=== PATIENT | female | born 1955 | race American Indian/Alaskan Native ===

== ENCOUNTER 2019-04-26 10:33 | Outpatient (CLI) | payer OTHER ==
--- NOTE | 2019-04-27 09:23 | Mammography Report ---
DIGITAL SCREENING MAMMOGRAM WITH CAD, 04/26/2019 INDICATION: Routine screening mammography. TECHNIQUE: Digital bilateral 2D mammography was obtained in the craniocaudal and mediolateral obliq ue projections. This examination was interpreted with the benefit of Computer-Aided Detection analysi s. COMPARISON: None available. However, she indicated that she had a prior mammogram at [facility]. FINDINGS: Breast Density: The breasts are heterogeneously dense, which may obscure small masses. Right outer parenchymal asymmetries require comparison with the prior mammogram or additional imaging . There is no evidence of dominant mass, suspicious calcifications or architectural distortion in the left breast. Scattered bilateral calcifications with benign morphology. IMPRESSION: Comparison with a previous mammogram is recommended. We will attempt to obtain a prior ma mmogram for comparison. If we do not obtain a prior mammogram within 30 days, a revised report will b e issued recommending a recall for additional imaging. Please be advised that the patient should not schedule an appointment for return until adequate time (at least 2 weeks) has passed for us to obtain the prior mammogram. Follow up recommendation: Obtain prior study for comparison Category 0: Incomplete. Needs additional imaging evaluation and/or prior mammograms for comparison. A "normal" or negative report should not discourage follow up or biopsy of a clinically significant f inding. A written summary of these findings will be mailed to the patient. The patient will be entered into a mammography reporting system which will generate a reminder letter for the patient's next appointmen t at the appropriate interval. The [employer] recommends yearly mammograms starting at age 40 and continuing as l erin as a woman is in good health. Breast MRI is recommended for women with an approximate 20-25% or greater lifetime risk of breast cancer, including women with a strong family history of breast or ova alberto cancer or who have been treated for Hodgkin's disease. Signer Name: Carloz Mock MD Signed: 04/27/2019 9:19 AM Workstation Name: [id number]
== END 2019-04-26 10:34 | disposition home or self-care (01) ==
LOC: MAMMO 10:33
PROVIDERS: ATTEND Internal Medicine
DX: Z12.31 Encounter for screening mammogram for malignant neoplasm of breast (principal)
CPT/HCPCS: 77067

== ENCOUNTER 2020-08-21 09:02 | Outpatient (CLI) | payer OTHER ==
--- NOTE | 2020-08-21 10:04 | Mammography Report ---
DIGITAL SCREENING MAMMOGRAM WITH CAD, 08/21/2020 CLINICAL INFORMATION / INDICATION: Routine screening mammography. SCREENING MAMMOGRAM TECHNIQUE: Digital bilateral 2D mammography was obtained in the craniocaudal and mediolateral obliqu e projections. This examination was interpreted with the benefit of Computer-Aided Detection analysis . COMPARISON: 12/15/2017 and 04/26/2019. FINDINGS: Breast Density: There are scattered areas of fibroglandular density. No dominant mass, suspicious calcifications, or architectural distortion in either breast. There are benign scattered calcifications bilaterally. No new abnormality is seen. IMPRESSION: No mammographic evidence of malignancy. Follow up recommendation: Routine yearly BI-RADS Category 2: Benign. A "normal" or negative report should not discourage follow up or biopsy of a clinically significant f inding. A written summary of these findings will be mailed to the patient. The patient will be entered into a mammography reporting system which will generate a reminder letter for the patient's next appointmen t at the appropriate interval. The [employer] recommends yearly mammograms starting at age 40 and continuing as l erin as a woman is in good health. Breast MRI is recommended for women with an approximate 20-25% or greater lifetime risk of breast cancer, including women with a strong family history of breast or ova alberto cancer or who have been treated for Hodgkin's disease. Signer Name: Ayden Bustos MD Signed: 08/21/2020 9:59 AM Workstation Name: [id number]
== END 2020-08-21 09:03 | disposition home or self-care (01) ==
LOC: MAMMO 09:02
PROVIDERS: ATTEND Internal Medicine
DX: Z12.31 Encounter for screening mammogram for malignant neoplasm of breast (principal); R92.1 Mammographic calcification found on diagnostic imaging of breast
CPT/HCPCS: 77067